=== PATIENT | male | born 1940 | race African-American/Black ===

== ENCOUNTER 2017-01-26 01:14 | Inpatient (IN) ==
[2017-01-26] MEDS ORDERED: ALBUTEROL/IPRATROPIUM 3 ML NEB RESP TX STA (01:24)
--- NOTE | 2017-01-26 01:41 | EKG Report ---
Stationary ECG Study [facility] ER Test Date: 01/26/2017 1:40:35 AM Pat Name: SOFIYA ROLDAN Department: Room: Gender: M Communications Field Technician: : 1940 Requested by: González Gann Order Number: [id number] Leonor MD: KAMERON SALCEDO Intervals Forbes Rate: 105 P: 52 CA: 127 QRS: 16 QRSD: 89 T: 55 QT: 357 QTc: 418 Interpretive Statements SINUS TACHYCARDIA ABNORMAL RHYTHM ECG Electronically Signed On 01-26-17 09:16:27 CDT by KAMERON SALCEDO [email or web address]
[2017-01-26 02:17] LABS: Basophils % 0.2 % (0.0-0.8); Eosinophils # 0.3 10*3/uL (0.0-0.87); Eosinophils % 2.7 % (0.00-10.9); Hematocrit 28.2 VOL% (42.0-52.0); Hemoglobin 8.9 GM/DL (14.0-18.0); Immature Granulocytes % 0.5 %; Immature Granulocytes Absolute 0.05 #; Lymphocytes # 2.1 10*3/uL (1.4-4.0); Lymphocytes % 22.1 % (21.2-54.2); Mean Corpuscular HGB Conc 31.6 GM/DL (32-36); Mean Corpuscular Hemoglobin 33 PG (27-34); Mean Corpuscular Volume 104.1 FL (87-102); Mean Platelet Volume 10.3 FL (9.6-12.0); Monocytes # 0.5 10*3/uL (0.11-0.8); Monocytes % 5.6 % (1.7-12.7); NRBC # 0.03 10*3/uL; Neutrophils # 6.4 10*3/uL (1.4-7.4); Neutrophils % 68.9 % (38.7-73.9); Platelet Count 246 T/CUMM (130-400); Red Blood Count 2.71 MC/CUMM (3.8-5.5); Red Cell Distribution Width 17.6 % (9.3-17.3); White Blood Count 9.3 T/CUMM (4-12)
[2017-01-26 02:19] LABS: Alanine Aminotransferase < 9 U/L (16-61); Albumin 2.4 G/DL (3.4-5.0); Alkaline Phosphatase 61 U/L (45-117); Aspartate Amino Transferase 25 U/L (0-37); Bilirubin,Total < 0.39 MG/DL (0.2-1.0); Blood Urea Nitrogen 34 MG/DL (7-18); Calcium 8.1 MG/DL (8.5-10.1); Glucose 118 MG/DL (74-106); Magnesium 1.7 MG/DL (1.8-2.4); Osmolality,Calculated 296.7 MOS/KG (273-304); Potassium 4.8 MMOL/L (3.5-5.1); Sodium 145 MMOL/L (136-145); Total Protein 7.5 G/DL (6.4-8.3)
[2017-01-26 02:30] LABS: Apearance,Urine CLEAR (Clear); Bacteria,Urine Occasional /HPF (Few); Bilirubin,Urine Negative (Negative); Blood, Urine Negative (Negative); Glucose,Urine (UA) Negative (Negative); Hyaline Casts,Urine 7 /LPF (0-3); Ketones,Urine Negative (Negative); Mucus,Urine Occasional /LPF (Occasional); Nitrite,Urine Negative (Negative); Protein,Urine Negative; RBC,Urine <1 /HPF (0-4); Squamous Epithelial Cell,Urine Occasional /HPF (0-10); Urine Color Yellow (Yellow); Urine Specific Gravity 1.012 (1.001-1.035); Urine Urobilinogen < 2.0 EU/DL (0.2-1.0); WBC,Urine 1 /HPF (0-6)
[2017-01-26 02:40] LABS: INR 1.1; PT Patient Result 11.3 SECS; Partial Thromboplastin Time 22.5 SECS (0-40)
[2017-01-26] MEDS ORDERED: cefTRIAXone 1,000 MG in SODIUM CHLORIDE 0.9% 100 ML IV STA (02:50)
[2017-01-26] MEDS ORDERED: cefTRIAXone 1,000 MG VIAL ONE (02:59)
--- NOTE | 2017-01-26 03:21 | Hospitalist History & Physical ---
Assessment and Plan (1) Pneumonia Status: Acute Current Visit: Yes (2) Fever Status: Acute Current Visit: Yes (3) Altered mental status Status: Acute Assessment and plan: Our plan for this patient: 1. admit patient to our service 2. IV antibiotics 3. Home meds as appropriate 4. breathing treatments appropriate Current Visit: Yes History of Present Illness Chief complaint: Fever shortness of breath altered mental status History of present illness: Mr. Villar is a 76 year old male with past medical history significant for frequent falls increased cholesterol hypertension and neuropathy was in his normal state of health until tonight. Patient is a resident at [facility]. Patient found to have decreased saturations and a fever of 101.3. Patient was sent up to our hospital for further evaluation. Pt confirmed that his cough causes pain in his abd/urine incontinence and that he is on home O2 constantly. Patient found to have a pneumonia. I was consulted to admit the patient to the ER. Home Medications Medication Instructions Recorded Confirmed Type Acetaminophen Tab [Tylenol Tab] 650 mg PO Q4H 06/08/15 01/26/17 History Albuterol Sulfate [Proair HFA] 90 mcg INH QID 06/08/15 01/26/17 History Allopurinol 100 mg PO DAILY 06/08/15 01/26/17 History Aspirin [Ecotrin] 81 mg PO DAILY 06/08/15 01/26/17 History Benzocaine/Menthol Lozenge 1 lozenge PO PRN PRN 06/08/15 01/26/17 History [Cepacol Lozenge] Ferrous Sulfate 325 mg PO DAILY 06/08/15 01/26/17 History Guaifenesin [Mucinex] 1,200 mg PO PRN PRN 06/08/15 01/26/17 History Loratadine [Claritin] 10 mg PO DAILY 06/08/15 01/26/17 History Promethazine Tab [Phenergan Tab] 25 mg PO Q4H PRN 06/08/15 01/26/17 History Sulfasalazine [Azulfidine] 500 mg PO BID 06/08/15 01/26/17 History HYDROcodone/ACETAMIN 10-325 [[place] 1 tablet PO Q6H PRN #20 tablet 07/09/1501/26 Rx 10-325] Valacyclovir HCl [Valtrex] 1,000 mg PO TID #21 tablet 07/09/15 01/26/17 Rx predniSONE TAB [PredniSONE] 20 mg PO BID #20 tablet 07/09/15 01/26/17 Rx Allergies Allergy/AdvReac Type Severity Reaction Status Date / Time naproxen Allergy RASH Verified 01/26/17 01:32 tramadol [From Ultram] Allergy RASH Verified 01/26/17 01:32 Medical,Surgical,& Family Hx - Medical History Cardio: History of: Hypertension HEENT: History of: HEENT Problems (wears a hearing box) Rheumatology: History of;: Gout, Rheumatoid Arthritis Musculoskeletal: History of: Musculoskeletal Problems (unsteady gait, frequent falls) Hematology: History of: Anemia - Surgical History Additional Surgical History: Unable to obtain - Family History Additional Family History: Unable to obtain - Social History Smoking Status: Never smoker Frequency of Alcohol Use: None Type of Drug Use: None ROS unobtainable: due to mental status Exam - Constitutional Vitals: Period Temp Pulse Resp BP Sys/Praksah Pulse Ox Last 24 Hr 101.8 F-101.8 F 101-109 16-23 162-163/62-63 85-100 - General General appearance: alert, in no apparent distress - Head Head exam: Present: atraumatic, normocephalic - Eye Eye exam: Present: normal appearance, PERRL, EOMI - ENT ENT exam: Present: normal oropharynx, mucous membranes moist, TM's normal bilaterally, normal external ear exam - Neck Neck exam: Present: full ROM, trachea midline. Absent: tenderness - Chest Chest inspection: Present: symmetric chest wall rise - Cardiovascular Cardiovascular exam: Present: tackcardia, normal rhythm, normal heart sounds. - Abdominal Exam Abdominal exam: Present: soft, normal bowel sounds. - Back Exam Back exam: Present: full ROM. Absent: tenderness - Neurological Exam Neurological exam: Present: alert, oriented X3, CN II-XII intact. - Psychiatric Psychiatric exam: Present: normal affect, normal mood, patient seems confused - Skin Skin exam: Present: warm, dry, intact, normal color Results - Labs CBC & BMP: 01/26/17 01:35 01/26/17 01:35 Labs: Per review of the chest x-ray there appears to be a right lower lobe pneumonia
[2017-01-26] MEDS ORDERED: ACETAMINOPHEN 325 MG TABLET PO PRN (03:25)
[2017-01-26] MEDS ORDERED: ALBUTEROL/IPRATROPIUM 3 ML NEB RESP TX PRN (03:25)
[2017-01-26] MEDS ORDERED: ONDANSETRON 4 MG/2 ML VIAL IV PRN (03:25)
--- NOTE | 2017-01-26 03:25 | Emergency Department Note ---
IDebby Gwan, am scribing for, and in the presence of, González Mackey MD 01:34. INarendra Kevin Lee, MD, personally performed the services described in this documentation, ascribed by Richard Guardado in my presence, and it is both accurate and complete . Arrival - Arrival Stated Complaint: fever Mode of Arrival: Ambulatory Limitations: No Limitations Source: Patient, EMS, Old Records Reviewed, RN Notes Reviewed - History of Present Illness HPI Narrative: Pt is a 76 y/o male, brought in by EMS transferred from [place], who presents to the ED for further evaluation of cough and fever with onset yesterday. EMS stated that [place] alerted EMS due to pt's presistant cough and c/o pain to left shoulder/ arm s/p fall yesterday. Pt confirmed that his cough causes pain in his abd/ urine incontinence and that he is on home O2 constantly. EMS confirmed that [place] staff stated pt's c/o left shoulder pain has been intermittent since onset. Patient denies any other pain/problems. Onset (ago): hour(s) Consistency: constant Severity: moderate Allergies/Adverse Reactions: Allergies Allergy/AdvReac Type Severity Reaction Status Date / Time naproxen Allergy RASH Verified 01/26/17 01:32 tramadol [From Ultram] Allergy RASH Verified 01/26/17 01:32 Home Medications: Home Medications Medication Instructions Recorded Confirmed Type Acetaminophen Tab [Tylenol Tab] 650 mg PO Q4H 06/08/15 01/26/17 History Albuterol Sulfate [Proair HFA] 90 mcg INH QID 06/08/15 01/26/17 History Allopurinol 100 mg PO DAILY 06/08/15 01/26/17 History Aspirin [Ecotrin] 81 mg PO DAILY 06/08/15 01/26/17 History Benzocaine/Menthol Lozenge 1 lozenge PO PRN PRN 06/08/15 01/26/17 History [Cepacol Lozenge] Ferrous Sulfate 325 mg PO DAILY 06/08/15 01/26/17 History Guaifenesin [Mucinex] 1,200 mg PO PRN PRN 06/08/15 01/26/17 History Loratadine [Claritin] 10 mg PO DAILY 06/08/15 01/26/17 History Promethazine Tab [Phenergan Tab] 25 mg PO Q4H PRN 06/08/15 01/26/17 History Sulfasalazine [Azulfidine] 500 mg PO BID 06/08/15 01/26/17 History HYDROcodone/ACETAMIN 10-325 [[place] 1 tablet PO Q6H PRN #20 tablet 07/09/1501/26 Rx 10-325] Valacyclovir HCl [Valtrex] 1,000 mg PO TID #21 tablet 07/09/15 01/26/17 Rx predniSONE TAB [PredniSONE] 20 mg PO BID #20 tablet 07/09/15 01/26/17 Rx Review of System - Review of System 12 point system: reviewed and no additional remarkable complaints except as stated - Review of System Constitutional: Present: as per HPI, fever Respiratory: Present: as per HPI, cough Musculoskeletal: Present: as per HPI, other (left shoulder pain) Medical,Surgical,& Family Hx - Medical History Cardio: History of: Hypertension HEENT: History of: HEENT Problems (wears a hearing box) Rheumatology: History of;: Gout, Rheumatoid Arthritis Hematology: History of: Anemia - Social History Smoking Status: Never smoker Exam Vital Signs: Vital Signs Temperature 101.8 F H 01/26/17 01:15 Pulse Rate 101 H 01/26/17 01:51 Respiratory Rate 23 01/26/17 01:51 Blood Pressure 163/62 01/26/17 01:15 O2 Sat by Pulse Oximetry 100 01/26/17 01:51 - General General appearance: alert, in no apparent distress - Head Head exam: Present: atraumatic, normocephalic - Eye Eye exam: Present: normal appearance, PERRL, EOMI - ENT ENT exam: Present: normal oropharynx, mucous membranes moist, TM's normal bilaterally, normal external ear exam - Neck Neck exam: Present: full ROM, trachea midline. Absent: tenderness - Chest Chest inspection: Present: symmetric chest wall rise. Absent: tenderness - Cardiovascular Cardiovascular exam: Present: regular rate, normal rhythm, normal heart sounds. Absent: murmur, rubs - Abdominal Exam Abdominal exam: Present: soft, normal bowel sounds. Absent: distention, tenderness - Back Exam Back exam: Present: full ROM. Absent: tenderness - Neurological Exam Neurological exam: Present: alert, oriented X3, CN II-XII intact. Absent: motor sensory deficit - Psychiatric Psychiatric exam: Present: normal affect, normal mood, other (patient appeared confused) - Skin Skin exam: Present: warm, dry, intact, normal color Course Course Narrative: will admit for IV abx Results - Labs CBC & BMP: 01/26/17 01:35 01/26/17 01:35 Lab Results: I have reviewed the patients labs Labs: Microbiology 01/26/17 01:35 Nasal Aspirate Influenza Types A,B Antigen (NORM) - Final Negative for Influenza A Ag Negative for Influenza B Ag Laboratory Tests 01/26/17 01/26/17 01/26/17 01:35 01:35 01:35 WBC 9.3 RBC 2.71 L Hgb 8.9 L Hct 28.2 L MCV 104.1 H MCHC 31.6 L RDW 17.6 H Plt Count 246 Sodium 145 Potassium 4.8 Chloride 104 Carbon Dioxide 31 BUN 34 H Creatinine 1.80 H Glucose 118 H Calcium 8.1 L Magnesium 1.7 L ALT < 9 L Albumin 2.4 L Globulin 5.1 H Albumin/Globulin Ratio 0.4 L Urine pH 5.0 Ur Specific [place] 1.012 Urine Urobilinogen < 2.0 H Urine RBC <1 Urine WBC 1 Ur Squamous Epith Cells Occasional Urine Bacteria Occasional Hyaline Casts 7 Urine Mucus Occasional Laboratory Tests 01/26/17 01/26/17 01/26/17 01:35 01:35 01:35 INR 1.1 PT Patient/Control Mix 11.3 Circ Anticoag PTT 22.5 B-Natriuretic Peptide 37 Urine pH 5.0 Ur Specific Butner 1.012 Urine Urobilinogen < 2.0 H Urine RBC <1 Urine WBC 1 Ur Squamous Epith Cells Occasional Urine Bacteria Occasional Hyaline Casts 7 Urine Mucus Occasional - Diagnostic Findings Procedure: Chest x-ray: image reviewed by me (RLL infiltrate), CT: image reviewed by me (no acute) Disposition Clinical Impression: Pneumonia, Hypoxia, Fever, Mild dehydration Case discussed with: patient Disposition: Still a Patient Condition: Stable
[2017-01-26] MEDS ORDERED: BENZOCAINE/MENTHOL LOZENGE 18/BOX PO PRN (03:31)
[2017-01-26] MEDS: AZITHROMYCIN INJ 500 MG in SODIUM CHLORIDE 0.9% 250 ML IV SCH (06:16)
--- NOTE | 2017-01-26 06:55 | CT Report ---
CT head/brain wo con Indication: Fall. Altered mental status. CT BRAIN WITHOUT CONTRAST DLP: 1026 mGy*cm. One or more of the following dose reduction techniques was used: Automated exposure control, adjustment of the mA and/or kV according the patient size, or use of iterative reconstruction techniques. Comparison: 07/06/2013. Date of admission: 01/26/2017. Technique: Axial noncontrast CT images of the brain were obtained. Findings: No acute hemorrhage, mass or mass effect. Generalized atrophy, patchy periventricular white matter hypodensity, and persistent cavum septum lucidum and vergae again noted. Hoffman-white junction is maintained. Vascular calcinosis of the nez perce of Cobb noted. No destructive bone lesions are seen. Visualized paranasal sinuses and mastoid air cells are clear. Impression: No acute intracranial pathology. Generalized atrophy and chronic small vessel ischemic change as described. PROCEDURE INTERPRETED AT [facility] DEPARTMENT OF RADIOLOGY Final Report Signed by: Pepe Marie M.D.
[2017-01-26] MEDS: ALBUTEROL 2.5 MG/3 ML NEB RESP TX SCH ×4 (07:02→19:12)
--- NOTE | 2017-01-26 07:05 | XRay Report ---
XR chest 1V portable Indication: Shortness of breath. Chest one view: Comparison 07/08/2015. Continued significant reticular nodular prominence of both lung terry noted diffusely. Lung lines are decreased from the prior examination with progressive atelectasis. Right hemidiaphragm is somewhat obscured by hazy opacity. Borderline cardiomegaly and calcified atheromatous disease appears stable. Impression: Worsening pulmonary hypoinflation with atelectasis. Cannot exclude early right basilar pneumonia. Severe underlying interstitial lung disease, stable since 2014. PROCEDURE INTERPRETED AT [facility] DEPARTMENT OF RADIOLOGY Final Report Signed by: Pepe Marie M.D.
[2017-01-26] MEDS: FERROUS SULFATE 325 MG TABLET PO SCH (08:34)
[2017-01-26] MEDS: ALLOPURINOL 100 MG TABLET PO SCH (08:34)
[2017-01-26] MEDS: ASPIRIN EC 81 MG TABLET PO SCH (08:34)
[2017-01-26] MEDS: valACYclovir 500 MG TABLET PO SCH ×3 (08:34→21:46)
[2017-01-26] MEDS: sulfaSALAzine 500 MG TABLET PO SCH ×2 (08:34→21:46)
[2017-01-26] MEDS: LORATADINE 10 MG TABLET PO SCH (08:34)
[2017-01-26] MEDS: ENOXAPARIN 40 MG/0.4 ML SYRINGE SUBCUT SCH (08:35)
[2017-01-26] MEDS: PANTOPRAZOLE 40 MG TABLET PO SCH (08:35)
[2017-01-26] MEDS ORDERED: predniSONE 20 MG TABLET PO SCH (09:00)
[2017-01-26] MEDS ORDERED: MAGNESIUM SULF RIDER 2 GM in PREMIX 1 EACH IV ONE (10:30)
[2017-01-26] MEDS ORDERED: BISACODYL 5 MG TABLET PO PRN (10:31)
--- NOTE | 2017-01-26 12:26 | Hospitalist Progress Note ---
Assessment and Plan (1) Interstitial lung disease Status: Acute Assessment and plan: Patient was diagnosed with interstitial lung disease in 2015 it is severe in nature. We will give him a low dose of steroids. Current Visit: Yes (2) Pneumonia Status: Acute Assessment and plan: Continue Rocephin and azithromycin, duo nebs, running fever at facility. White count is normal and neutrophils are normal. Monitor blood cultures Current Visit: Yes (3) Anemia Status: Acute Assessment and plan: Patient is anemic, will monitor, we will continue Protonix, guaiac his stool Current Visit: Yes (4) Acute renal failure Status: Acute Assessment and plan: One half normal saline at 125 ml/hr Current Visit: Yes (5) Dehydration Status: Acute Assessment and plan: cont hydration Current Visit: Yes (6) Constipation Status: Acute Assessment and plan: dulcolax 10 mg po times one Current Visit: Yes (7) Hyperglycemia Status: Acute Assessment and plan: hgb A1c. Current Visit: Yes Hospitalist: Subjective Interval history: Patient has had stroke, but can understand a little bit of what he says. He was asking marked for more water. His mag needs to be replaced. His belly feels distended sounds like he needs poop and he had a lot of coarse rhonchi. Thinking about having speech evaluate him. Exam - Constitutional Vitals: Period Temp Pulse Resp BP Sys/Prakash Pulse Ox Last 24 Hr 97.6 F-97.8 F 85-90 17-20 119-126/48-63 92-98 Exam: Heart Rate-[RRR] Lungs-[bilateral rhonchi] GI-[+bs distended but nontender] Ext-[no edema] Neuro [suspect right-sided weakness], [alert and oriented times 1 patient on able to neurologically cooperate.] psych [normal mood and affect] General [no acute distress] Results - Labs CBC & BMP: 01/26/17 01:35 01/26/17 01:35 Lab Results: I have reviewed the past 24 hour labs - Diagnostic Findings Procedure: Chest x-ray: report reviewed by me (Right lower lobe pneumonia severe interstitial lung disease)
[2017-01-26] MEDS ORDERED: AMMONIUM LACTATE 12% LOTION 240 ML BOTTLE TOP PRN (12:56)
[2017-01-26] MEDS: SODIUM CHLORIDE 0.45% 1,000 ML IV SCH (13:17)
[2017-01-26] MEDS: methylPREDNISolone SOD SUC 40 MG/1 ML VIAL IV SCH (15:23)
[2017-01-26] MEDS: GABAPENTIN 300 MG CAPSULE PO SCH ×2 (15:23→21:45)
[2017-01-26] MEDS: cefTRIAXone 1,000 MG in SODIUM CHLORIDE 0.9% 100 ML IV SCH (21:18)
[2017-01-27] MEDS: methylPREDNISolone SOD SUC 40 MG/1 ML VIAL IV SCH ×2 (00:30→08:47)
[2017-01-27] MEDS: SODIUM CHLORIDE 0.45% 1,000 ML IV SCH ×2 (03:20→16:36)
[2017-01-27 06:36] LABS: Basophils % 0.1 % (0.0-0.8); Hematocrit 31.4 VOL% (42.0-52.0); Hemoglobin 9.3 GM/DL (14.0-18.0); Immature Granulocytes % 0.8 %; Immature Granulocytes Absolute 0.08 #; Lymphocytes % 9.9 % (21.2-54.2); Mean Corpuscular HGB Conc 29.6 GM/DL (32-36); Mean Corpuscular Hemoglobin 32 PG (27-34); Mean Corpuscular Volume 107.9 FL (87-102); Mean Platelet Volume 9.7 FL (9.6-12.0); Monocytes # 0.1 10*3/uL (0.11-0.8); Monocytes % 0.9 % (1.7-12.7); NRBC # 0.02 10*3/uL; Neutrophils # 9.1 10*3/uL (1.4-7.4); Neutrophils % 88.3 % (38.7-73.9); Platelet Count 279 T/CUMM (130-400); Red Blood Count 2.91 MC/CUMM (3.8-5.5); Red Cell Distribution Width 17.2 % (9.3-17.3); White Blood Count 10.3 T/CUMM (4-12)
[2017-01-27 07:05] LABS: Calcium 8.3 MG/DL (8.5-10.1); Osmolality,Calculated 291.1 MOS/KG (273-304); Potassium 5.1 MMOL/L (3.5-5.1)
[2017-01-27] MEDS: MAGNESIUM HYDROXIDE SUSP 30 ML UDCUP PO PRN (08:47)
[2017-01-27] MEDS: ASPIRIN EC 81 MG TABLET PO SCH (08:48)
[2017-01-27] MEDS: ATORVASTATIN 40 MG TABLET PO SCH (08:48)
[2017-01-27] MEDS: PANTOPRAZOLE 40 MG TABLET PO SCH (08:48)
[2017-01-27] MEDS: valACYclovir 500 MG TABLET PO SCH ×3 (08:48→20:02)
[2017-01-27] MEDS: FERROUS SULFATE 325 MG TABLET PO SCH (08:48)
[2017-01-27] MEDS: sulfaSALAzine 500 MG TABLET PO SCH ×2 (08:48→20:02)
[2017-01-27] MEDS: GABAPENTIN 300 MG CAPSULE PO SCH ×3 (08:48→20:01)
[2017-01-27] MEDS: FOLIC ACID 1 MG TABLET PO SCH (08:48)
[2017-01-27] MEDS: ALLOPURINOL 100 MG TABLET PO SCH (08:49)
[2017-01-27] MEDS: ENOXAPARIN 40 MG/0.4 ML SYRINGE SUBCUT SCH (08:49)
[2017-01-27] MEDS: LORATADINE 10 MG TABLET PO SCH (08:49)
[2017-01-27] MEDS: AZITHROMYCIN INJ 500 MG in SODIUM CHLORIDE 0.9% 250 ML IV SCH (08:51)
[2017-01-27] MEDS: ALBUTEROL 2.5 MG/3 ML NEB RESP TX SCH ×4 (08:53→19:32)
--- NOTE | 2017-01-27 09:37 | Physician Query Form ---
CLICK EDIT DOCUMENT TO SELECT QUERY ANSWER --> OK --> SIGN Sonya Mustafa RN Clinical [employer] W) [phone] (f) [phone] [email or web address] PROVIDERS: Make your selection(s) from the choices in EACH section by typing an "x" and enter comments in the comment section. Please use your independent medical judgment in providing your response. This request does not imply that any particular answer is desired or expected. CLINICAL INDICATORS: (Providers should not edit this section) Based on documentation of "Acute interstitial lung disease" "On home oxygen continuously" "Acute pneumonia" Oxygen applied at 2 liters. If possible, please further clarify the type and acuity of respiratory diagnosis : ACUITY: ( ) Acute ( x) Chronic ( ) Acute on Chronic TYPE: ( x) Respiratory failure with hypoxia ( ) Respiratory failure with hypercapnia ( ) Respiratory Arrest ( ) Postprocedural/postoperative respiratory failure ( ) ARDS (Adult/Acute Respiratory Distress Syndrome) ( ) Other, please specify: ( ) Clinically unable to determine Recognized criteria for respiratory failure PH <7.35 or >7.45 PO2 <60 PCO2 >50 RR >24 O2 Sat <90% on RA or <95% on O2 Use of accessory muscles Unable to speak in full sentences Intubation is not required COMMENTS: Use of terms such as suspected, likely, or probable (associated with a specific diagnosis that is being evaluated, monitored, or treated as if it exists) are acceptable and can be restated in the discharge summary if not ruled out. MTDD
--- NOTE | 2017-01-27 14:05 | Hospitalist Progress Note ---
Assessment and Plan (1) Interstitial lung disease Status: Acute Assessment and plan: This condition is chronic and stable Current Visit: Yes (2) Pneumonia Status: Acute Assessment and plan: Continue Rocephin and azithromycin, duo nebs, blood cultures negative Current Visit: Yes (3) Anemia Status: Acute Assessment and plan: Hemoglobin stable continue protonix Current Visit: Yes (4) Acute renal failure Status: Acute Assessment and plan: Continue gentle hydration half-normal saline Current Visit: Yes (5) Dehydration Status: Acute Assessment and plan: cont hydration Current Visit: Yes (6) Constipation Status: Acute Assessment and plan: Resolved patient had multiple bowel movements Current Visit: Yes (7) Hyperglycemia Status: Acute Assessment and plan: hgb A1c pending Current Visit: Yes (8) Altered mental status Status: Acute Assessment and plan: MRI of brain today Current Visit: Yes Hospitalist: Subjective Interval history: Patient more talkative and more alert. Nursing reports him getting up and walking around and talking more his words are a little bit slurred. Talked to the family this morning and normally gas he is very alert and awake in talking to people they are not aware that he has ever had a stroke in the past. I am still concerned he may be having little TIAs affecting his mentation. We will do an MRI of brain today. Exam - Constitutional Vitals: Period Temp Pulse Resp BP Sys/Prakash Pulse Ox Last 24 Hr 96.1 F-98.9 F 77-89 16-22 137-170/62-80 91-98 Exam: Heart Rate-[RRR] Lungs-[clear to auscultation bilaterally but diminished] GI-[+bs soft but obese] Ext-[no edema] Neuro [more alert and awake and talkative today. Moving all extremities well today. psych [normal mood and affect] General [no acute distress] Results - Labs CBC & BMP: 01/27/17 06:01 01/27/17 06:01 Lab Results: I have reviewed the past 24 hour labs Labs: Blood cultures 2 negative
--- NOTE | 2017-01-27 16:07 | Magnetic Resonance Report ---
Referring physician: Nyla Ferreira Exam: MRI brain without contrast Date: January 27, 2017 Comparison: CT brain without contrast January 26, 2017, MRI brain April 08, 2008, MRA head April 09, 2008 Reason: Stroke, TIA The patient is an inpatient who was admitted on January 27, 2017. Technique: MRI of the brain was performed without the use of contrast. Obtained images include sagittal T1, axial diffusion-weighted, axial FLAIR, axial T2, coronal T2, axial gradient and axial T1 sequences. A 1.5 Gricelda magnet was used. Findings: Motion artifact is present and degrades the quality of the study. There is a 0.7 cm focus of diffusion restriction at the subcortical white matter of the right occipital lobe. No corresponding abnormal signal seen on the T2 or FLAIR sequences, but this may be related to its small size. This could represent artifact or a small acute or early subacute lacunar-type infarction. A lacunar infarction is favored. There is mild generalized cerebral atrophy/volume loss. Small scattered areas of T2/FLAIR hyperintensity are again seen within the cerebral white matter bilaterally. This is nonspecific but is most consistent with mild chronic microvascular ischemic change. Less likely considerations include a demyelinating process, vasculitis or viral process. No hydrocephalus or midline shift is present. 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 There is no evidence of recent intracranial hemorrhage or abnormal mass effect. No abnormal extra-axial fluid collection is identified. 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 Please see the previous MRA of the brain for further details. The patient is likely status post cataract surgery. The orbits, sella and brainstem are otherwise unremarkable. The paranasal sinuses and mastoid air cells are clear. Impression: 1. There is a 0.7 cm focus of diffusion restriction within the subcortical white matter of the right occipital lobe. No corresponding abnormal signal is seen on the T2 or FLAIR images, but this likely represents an acute or early subacute lacunar infarction. 2. There is nonvisualization of the intracranial right ICA flow void. 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 3. There is mild generalized cerebral atrophy/volume loss and probable chronic microvascular ischemic change. This is similar to before. Findings were discussed with Dr. Ferreira on January 27, 2017 at 4:00 PM. This is a critical test. PROCEDURE INTERPRETED AT [facility] DEPARTMENT OF RADIOLOGY Final Report Signed by: Dr. Enedina Ferris
[2017-01-27] MEDS: CARVEDILOL 6.25 MG TABLET PO SCH (16:32)
[2017-01-27] MEDS: cefTRIAXone 1,000 MG in SODIUM CHLORIDE 0.9% 100 ML IV SCH (20:19)
[2017-01-28] MEDS: ALBUTEROL 2.5 MG/3 ML NEB RESP TX SCH ×2 (07:01→11:46)
[2017-01-28] MEDS ORDERED: methylPREDNISolone SOD SUC 125 MG/2 ML VIAL IV ONE (07:35)
[2017-01-28] MEDS ORDERED: hydrALAZINE 20 MG/1 ML VIAL ONE (07:35)
[2017-01-28] MEDS ORDERED: MORPHINE 2 MG/1 ML SYRINGE IV ONE (07:35)
[2017-01-28] MEDS ORDERED: ASPIRIN CHEW 81 MG TABLET PO ONE (07:35)
[2017-01-28] MEDS ORDERED: methylPREDNISolone SOD SUC 125 MG/2 ML VIAL ONE (07:36)
[2017-01-28] MEDS ORDERED: ALBUTEROL 2.5 MG/3 ML NEB RESP TX PRN (07:57)
[2017-01-28] MEDS ORDERED: FUROSEMIDE 40 MG/4 ML VIAL IV ONE (08:00)
[2017-01-28] MEDS ORDERED: ETOMIDATE 20 MG/10 ML VIAL IV ONE (08:15)
[2017-01-28] MEDS ORDERED: SUCCINYLCHOLINE 200 MG/10 ML VIAL ONE (08:15)
[2017-01-28] MEDS ORDERED: LIDOCAINE 2% 5 ML VIAL ONE (08:15)
[2017-01-28] MEDS: PROPOFOL 1,000 MG/100 ML BOTTLE IV SCH ×4 (08:20→23:11)
--- NOTE | 2017-01-28 08:22 | XRay Report ---
XR chest 1V portable Indication: Shortness of breath. Chest one view: Comparison 2 days ago shows worsening pulmonary edema with continued hazy obscuration of the lung bases. Cannot exclude developing pneumonia, especially on the right. Borderline cardiomegaly is stable. Continued mild prominence of the hilar structures noted. Impression: Worsening CHF decompensation. Progressive bibasilar obscuration concerning for developing pneumonia, especially on the right. PROCEDURE INTERPRETED AT [facility] DEPARTMENT OF RADIOLOGY Final Report Signed by: Pepe Marie M.D.
[2017-01-28 08:23] LABS: Basophils % 0.1 % (0.0-0.8); Eosinophils # 0.1 10*3/uL (0.0-0.87); Eosinophils % 0.5 % (0.00-10.9); Hematocrit 36.9 VOL% (42.0-52.0); Lymphocytes # 2.7 10*3/uL (1.4-4.0); Lymphocytes % 14.1 % (21.2-54.2); Mean Corpuscular HGB Conc 29.8 GM/DL (32-36); Mean Corpuscular Hemoglobin 32 PG (27-34); Mean Corpuscular Volume 107.9 FL (87-102); Mean Platelet Volume 9.7 FL (9.6-12.0); Monocytes # 0.8 10*3/uL (0.11-0.8); Monocytes % 4.1 % (1.7-12.7); NRBC # 0.05 10*3/uL; Neutrophils # 15.5 10*3/uL (1.4-7.4); Neutrophils % 80.2 % (38.7-73.9); Platelet Count 345 T/CUMM (130-400); Red Blood Count 3.42 MC/CUMM (3.8-5.5); Red Cell Distribution Width 17.6 % (9.3-17.3); White Blood Count 19.3 T/CUMM (4-12)
--- NOTE | 2017-01-28 08:29 | Anesthesia ---
Anesthesia Procedures - Intubation Time out performed intubation: Yes Sedative: Etomidate Mg given sedative: 18 Paralytic: Succinylcholine Mg given paralytic: 140 Laryngoscope: Dominique (3) ET Tube Size: 8 ET Tube Uncuffed: No Tube Secured Depth (cm): 22 Tube Secured Location: lips Tube Placement Confirmation: visualized tube passing through cords, equal breath sounds bilaterally, no breath sounds over epigastrium, confirmation by capnometry, confirmation detector color change Patient tolerated procedure intubation: no complications Intubation Complications: none
[2017-01-28 08:32] LABS: Alanine Aminotransferase < 6 U/L (16-61); Albumin 2.7 G/DL (3.4-5.0); Alkaline Phosphatase 60 U/L (45-117); Aspartate Amino Transferase 20 U/L (0-37); Bilirubin,Total < 0.39 MG/DL (0.2-1.0); Blood Urea Nitrogen 36 MG/DL (7-18); Glucose 105 MG/DL (74-106); Osmolality,Calculated 288.3 MOS/KG (273-304); Potassium 5.3 MMOL/L (3.5-5.1); Sodium 141 MMOL/L (136-145); Total Protein 8.7 G/DL (6.4-8.3); Troponin I Only 0.033 NG/ML (0.00-0.045)
--- NOTE | 2017-01-28 08:38 | Pulmonology Consult Note ---
Assessment and Plan (1) Acute respiratory failure with hypoxia Status: Acute Assessment and plan: The patient has developed worsening respiratory distress with hypoxemia and has required intubation. He appears to have fairly stiff lungs at present and will probably need to adjust his ventilator. Current Visit: Yes (2) Rheumatoid arthritis Status: Acute Assessment and plan: Patient apparently has a history of rheumatoid arthritis and may have interstitial lung disease. Current Visit: Yes (3) Pneumonia Status: Acute Assessment and plan: He is acutely worsened overnight and may have pneumonia. Current Visit: Yes (4) Acute renal failure Status: Acute Assessment and plan: He came in with a creatinine of 1.8 but it has improved to 1.3 Current Visit: Yes (5) Interstitial lung disease Status: Acute Assessment and plan: His x-rays suggest he may have some interstitial lung disease. Current Visit: Yes History of Present Illness Chief complaint: Shortness of breath History of present illness: Mr. Villar is a 76 year old black male that apparently has a history of having hypertension with a peripheral neuropathy. He has had frequent falls. He is a resident at [facility]. He apparently came in because of fever and some shortness of breath. He has been coughing and congested. His chest x-ray showed bilateral infiltrates. This morning he apparently was acutely short of breath and has required intubation. He does have diffuse bilateral infiltrates. It is unclear whether he has had underlying lung disease. He has no history of smoking. He possibly does have rheumatoid arthritis. Home Medications Medication Instructions Recorded Confirmed Type Albuterol Sulfate [Proair HFA] 90 mcg INH QID 06/08/15 01/26/17 History Allopurinol 100 mg PO BID 06/08/15 01/26/17 History Aspirin [Ecotrin] 81 mg PO DAILY 06/08/15 01/26/17 History Benzocaine/Menthol Lozenge 1 lozenge PO PRN PRN 06/08/15 01/26/17 History [Cepacol Lozenge] Guaifenesin [Mucinex] 200 mg PO PRN PRN 06/08/15 01/26/17 History Loratadine [Claritin] 10 mg PO DAILY 06/08/15 01/26/17 History Promethazine Tab [Phenergan Tab] 25 mg PO Q4H PRN 06/08/15 01/26/17 History Sulfasalazine [Azulfidine] 500 mg PO BID 06/08/15 01/26/17 History Albuterol Sulfate [Proair HFA] 2 puffs QID 01/26/17 01/26/17 History Ammonium Lactate 12% Lotion 1 applic TOP Q6HR PRN 01/26/17 01/26/17 History [Lac-Hydrin 12% Lotion] Atorvastatin Calcium 40 mg PO DAILY 01/26/17 01/26/17 History Calcium (Carbonate) [Oscal 500] 500 mg PO TID 01/26/17 01/26/17 History Cilostazol 50 mg PO BID 01/26/17 01/26/17 History Cyanocobalamin (Vitamin B-12) 1,000 mcg PO DAILY 01/26/17 01/26/17 History [Vitamin B-12] Dextromethorphan HBr/B-Asif 1 tablet PO Q4HR PRN 01/26/17 01/26/17 History [Cepacol Sorethroat-Cough Gerri] Folic Acid Tab 2 mg PO DAILY 01/26/17 01/26/17 History Gabapentin 300 mg PO TID 01/26/17 01/26/17 History HYDROcodone/ACETAMIN 10-325 [Willcox 1 tablet PO Q6H PRN 01/26/17 01/26/17 History 10-325] Skin Healing Oint (Aquaphor) 1 applic TOP DAILY 01/26/17 01/26/17 History [Aquaphor] guaiFENesin/DM LIQUID [Robitussin 10 ml PO Q4HR PRN 01/26/17 01/26/17 History Dm] hydroCHLOROthiazide 12.5 mg PO DAILY 01/26/17 01/26/17 History [Hydrochlorothiazide] Allergies Allergy/AdvReac Type Severity Reaction Status Date / Time naproxen Allergy RASH Verified 01/26/17 01:32 tramadol [From Ultram] Allergy RASH Verified 01/26/17 01:32 ROS unobtainable: due to endotracheal tube (He is unable to give a history now.) Exam (Pulmonay) H&P - Constitutional Vitals: Period Temp Pulse Resp BP Sys/Prakash Pulse Ox Last 24 Hr 96.1 F-98.2 F 76-118 17-38 125-205/49-117 74-99 General appearance: mild distress, over weight, other (He is a little agitated after being intubated) - Head Head exam: Present: normal inspection, normocephalic - Eye Eye exam: Present: EOMI. Absent: scleral icterus Pupils: Present: ALFREDA - ENT ENT exam: Present: other (ET tube is in good position) - Neck Neck exam: Absent: lymphadenopathy, thyromegaly - Respiratory Respiratory exam: Present: rales, other (He has coarse breath sounds with bilateral rales) - Cardiovascular Cardiovascular exam: Present: regular rate and rhythm. Absent: gallop, systolic murmur - GI/Abdominal GI/Abdominal exam: Present: distended, hypoactive bowel sounds, soft. Absent: organomegaly, tenderness - Extremities Exam Extremities exam: Absent: calf tenderness, edema - Neurological Exam Neurological exam: Present: altered (He is required sedation at present) - Psychiatric Psychiatric exam: Present: anxious - Skin Skin exam: Present: warm, dry Medical,Surgical,& Family Hx - Medical History Cardio: History of: Hypertension HEENT: History of: HEENT Problems (wears a hearing box) Rheumatology: History of;: Gout, Rheumatoid Arthritis Musculoskeletal: History of: Musculoskeletal Problems (unsteady gait, frequent falls) Hematology: History of: Anemia - Social History Smoking Status: Never smoker Frequency of Alcohol Use: None Type of Drug Use: None Results - Labs CBC & BMP: 01/28/17 07:51 01/28/17 07:51 - Diagnostic Findings Procedure: Chest x-ray: image reviewed by me, report reviewed by me (Chest x- ray does show diffuse infiltrates)
[2017-01-28] MEDS ORDERED: methylPREDNISolone SOD SUC 40 MG/1 ML VIAL IV SCH ×2 (09:00→13:00)
[2017-01-28] MEDS ORDERED: AZITHROMYCIN 250 MG TABLET PO SCH (09:00)
[2017-01-28 09:10] LABS: Pt O2 Delivery Device Ventilator
[2017-01-28 09:11] LABS: ABG Base Excess 1.9 MMOL/L (-2.5-2.5); ABG HCO3 31.9 MMOL/L (20-26); ABG PO2 215.3 MM HG (80-95); ABG TCO2 34.5 MMOL/L (23-27)
[2017-01-28 09:16] LABS: ABG PCO2 85.5 MM HG (35-48)
[2017-01-28] MEDS: SODIUM CHLORIDE 0.45% 1,000 ML IV SCH (09:44)
--- NOTE | 2017-01-28 09:59 | XRay Report ---
XR chest 1V portable Indication: Intubated. Chest one view: Endotracheal tube is now present terminating 3 cm cephalad of william. An NG tube extends into the left upper quadrant, well into the stomach. Changes of CHF are relatively stable when compared to 1.5 hours earlier. No new infiltrates are shown. Impression: Intubation. NG tube as described. Otherwise no change. PROCEDURE INTERPRETED AT [facility] DEPARTMENT OF RADIOLOGY Final Report Signed by: Pepe Marie M.D.
[2017-01-28] MEDS: sulfaSALAzine 500 MG TABLET PO SCH ×2 (11:02→20:58)
[2017-01-28] MEDS: valACYclovir 500 MG TABLET PO SCH ×3 (11:02→20:58)
[2017-01-28] MEDS: ASPIRIN CHEW 81 MG TABLET PO SCH (11:02)
[2017-01-28] MEDS: FOLIC ACID 1 MG TABLET PO SCH (11:03)
[2017-01-28] MEDS: PANTOPRAZOLE 40 MG VIAL IV SCH (11:03)
[2017-01-28] MEDS: ALLOPURINOL 100 MG TABLET PO SCH (11:03)
[2017-01-28] MEDS: LORATADINE 10 MG TABLET PO SCH (11:03)
[2017-01-28] MEDS: GABAPENTIN 300 MG CAPSULE PO SCH ×3 (11:03→20:59)
[2017-01-28] MEDS: CARVEDILOL 6.25 MG TABLET PO SCH ×2 (11:04→16:11)
[2017-01-28] MEDS: ENOXAPARIN 40 MG/0.4 ML SYRINGE SUBCUT SCH (11:04)
[2017-01-28] MEDS: FERROUS SULFATE 325 MG TABLET PO SCH (11:04)
[2017-01-28] MEDS: ATORVASTATIN 40 MG TABLET PO SCH (11:04)
[2017-01-28] MEDS: CLINDAMYCIN INJ 600 MG in PREMIX 1 EACH IV SCH ×2 (11:04→16:12)
[2017-01-28 11:05] LABS: Apearance,Urine CLEAR (Clear); Bacteria,Urine Occasional /HPF (Few); Bilirubin,Urine Negative (Negative); Blood, Urine Negative (Negative); Glucose,Urine (UA) Negative (Negative); Hyaline Casts,Urine 3 /LPF (0-3); Ketones,Urine Negative (Negative); Nitrite,Urine Negative (Negative); Protein,Urine Negative; RBC,Urine <1 /HPF (0-4); Squamous Epithelial Cell,Urine Occasional /HPF (0-10); Urine Color Straw (Yellow); Urine Specific Gravity 1.011 (1.001-1.035); Urine Urobilinogen < 2.0 EU/DL (0.2-1.0); WBC,Urine <1 /HPF (0-6)
[2017-01-28] MEDS: ASPIRIN EC 81 MG TABLET PO SCH (11:13)
[2017-01-28] MEDS: ALBUTEROL/IPRATROPIUM 3 ML NEB RESP TX SCH ×2 (12:01→19:07)
[2017-01-28 12:06] LABS: ABG Base Excess 3.3 MMOL/L (-2.5-2.5); ABG HCO3 26.4 MMOL/L (20-26); ABG Oxygen Saturation 99.2 % (95-100); ABG PCO2 34.3 MM HG (35-48); ABG PH 7.504 (7.35-7.45); ABG PO2 247.2 MM HG (80-95); ABG TCO2 27.4 MMOL/L (23-27)
--- NOTE | 2017-01-28 13:47 | Hospitalist Progress Note ---
Assessment and Plan (1) Acute respiratory failure Status: Acute Assessment and plan: Patient was intubated, fluids were hep-locked, Dr. Caleb Arriaga consulted, Lasix IV given, should be able to get off ventilator soon. Will add clindamycin for aspiration pneumonia as his white count went from 10-19. Current Visit: Yes (2) Pneumonia Status: Acute Assessment and plan: Will add clindamycin to cover aspiration continue Rocephin and azithromycin, duo nebs, white count significantly elevated today. Current Visit: Yes (3) Interstitial lung disease Status: Acute Assessment and plan: This condition is chronic Current Visit: Yes (4) Anemia Status: Acute Assessment and plan: Hemoglobin stable continue protonix Current Visit: Yes (5) Acute renal failure Status: Acute Assessment and plan: Resolving. Patient has chronic stage III renal failure and cannot tolerate any more fluids. 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 We moved him to the ICU and intubated him. Patient does have a lung disease and his chest x-ray showed cephalization of the vessels consistent with congestive heart failure. His BNP however was barely over 200. Dr. Arriaga was consulted and will manage the vent for me. Exam - Constitutional Vitals: Period Temp Pulse Resp BP Sys/Prakash Pulse Ox Last 24 Hr 96.7 F-98.2 F 70-120 12-38 87-215/38-141 74-100 Exam: Heart Rate-[tachy] Lungs-[diffuse bilateral expiratory wheezing] GI-[+bs soft but obese] Ext-[no edema] Neuro [more alert and awake and talkative today. Moving all extremities well today. psych [normal mood and affect] General [severe acute distress] Results - Labs CBC & BMP: 01/28/17 07:51 01/28/17 07:51 Lab Results: I have reviewed the past 24 hour labs - Diagnostic Findings Procedure: Chest x-ray: report reviewed by me (Pulmonary edema), MRI: report reviewed by me (0.7 cm in the right occipital lobe consistent with an infarct acute or early subacute with flow void in the right ICA consistent with occlusion of the right ICA. There is generalized atrophy and volume loss.)
[2017-01-28] MEDS: methylPREDNISolone SOD SUC 125 MG/2 ML VIAL IV SCH ×2 (16:11→20:57)
[2017-01-28] MEDS: FUROSEMIDE 40 MG/4 ML VIAL IV SCH (16:11)
[2017-01-28] MEDS: cefTRIAXone 1,000 MG in SODIUM CHLORIDE 0.9% 100 ML IV SCH (20:58)
[2017-01-29] MEDS: ALBUTEROL/IPRATROPIUM 3 ML NEB RESP TX SCH ×4 (00:05→19:51)
[2017-01-29] MEDS: CLINDAMYCIN INJ 600 MG in PREMIX 1 EACH IV SCH ×2 (00:18→10:37)
[2017-01-29] MEDS: methylPREDNISolone SOD SUC 125 MG/2 ML VIAL IV SCH ×4 (03:25→20:38)
[2017-01-29] MEDS: PROPOFOL 1,000 MG/100 ML BOTTLE IV SCH ×4 (05:26→22:29)
[2017-01-29 06:10] LABS: Hematocrit 32.8 VOL% (42.0-52.0); Hemoglobin 9.8 GM/DL (14.0-18.0); Immature Granulocytes % 0.7 %; Immature Granulocytes Absolute 0.08 #; Lymphocytes # 1.5 10*3/uL (1.4-4.0); Lymphocytes % 12.3 % (21.2-54.2); Mean Corpuscular HGB Conc 29.9 GM/DL (32-36); Mean Corpuscular Hemoglobin 32 PG (27-34); Mean Corpuscular Volume 106.8 FL (87-102); Monocytes # 0.2 10*3/uL (0.11-0.8); NRBC # 0.02 10*3/uL; Neutrophils # 10.3 10*3/uL (1.4-7.4); Platelet Count 290 T/CUMM (130-400); Red Blood Count 3.07 MC/CUMM (3.8-5.5); Red Cell Distribution Width 17.6 % (9.3-17.3); White Blood Count 12.2 T/CUMM (4-12)
[2017-01-29 06:31] LABS: Osmolality,Calculated 291.7 MOS/KG (273-304); Potassium 4.9 MMOL/L (3.5-5.1)
[2017-01-29] MEDS: CARVEDILOL 6.25 MG TABLET PO SCH (07:45)
[2017-01-29] MEDS: FUROSEMIDE 40 MG/4 ML VIAL IV SCH (07:46)
--- NOTE | 2017-01-29 08:05 | Pulmonology Progress Note ---
Pulmonary - PN: Subj Interval history: Patient is a 76-year-old black man that developed acute respiratory distress and diffuse infiltrates and had to be intubated yesterday. He did have significant hypoxemia with extensive infiltrates. He has diuresed fairly well and looks comfortable today. He is much more alert his oxygenation seems to be stable. Overall he seems to be doing fairly well. Exam (Progress Note) - Constitutional Vitals: Period Temp Pulse Resp BP Sys/Prakash Pulse Ox Last 24 Hr 96.5 F-97.8 F 49-120 12-92 87-215/38-141 83-100 Exam: General appearance: no distress, over weight, other (He is awake and comfortable on the ventilator now.) - Head Head exam: Present: normal inspection, normocephalic - Eye Eye exam: Present: EOMI. Absent: scleral icterus Pupils: Present: ALFREDA - ENT ENT exam: Present: other (ET tube is in good position) - Neck Neck exam: Absent: lymphadenopathy, thyromegaly - Respiratory Respiratory exam: Present: He has good breath sounds bilaterally and his lungs sound a little better with less rales. - Cardiovascular Cardiovascular exam: Present: regular rate and rhythm. Absent: gallop, systolic murmur - GI/Abdominal GI/Abdominal exam: Present: distended, hypoactive bowel sounds, soft. Absent: organomegaly, tenderness - Extremities Exam Extremities exam: Absent: calf tenderness, edema - Neurological Exam Neurological exam: Present: altered (He is awake and responding now.) - Psychiatric Psychiatric exam: Present: Comfortable - Skin Skin exam: Present: warm, dry Results - Labs CBC & BMP: 01/29/17 05:01 01/29/17 05:01 Assessment and Plan (1) Acute respiratory failure with hypoxia Status: Acute Assessment and plan: The patient looks much more comfortable and oxygenation is better. We will recheck a chest x-ray. Current Visit: Yes (2) Rheumatoid arthritis Status: Acute Assessment and plan: Patient apparently has a history of rheumatoid arthritis and may have interstitial lung disease. Current Visit: Yes (3) Pneumonia Status: Acute Assessment and plan: He is acutely worsened overnight and may have pneumonia. The patient is getting IV antibiotics. His cultures are negative so far. Current Visit: Yes (4) Acute renal failure Status: Acute Assessment and plan: He came in with a creatinine of 1.8 and is 1.6 today. Current Visit: Yes (5) Interstitial lung disease Status: Acute Assessment and plan: His x-rays suggest he may have some interstitial lung disease. Current Visit: Yes
[2017-01-29 08:09] LABS: ABG Base Excess 3.8 MMOL/L (-2.5-2.5); ABG HCO3 28.6 MMOL/L (20-26); ABG Oxygen Saturation 96.7 % (95-100); ABG PCO2 43.8 MM HG (35-48); ABG PH 7.432 (7.35-7.45); ABG PO2 89.5 MM HG (80-95); ABG TCO2 29.9 MMOL/L (23-27); Allen Test Positive; Pt O2 Delivery Device Ventilator
--- NOTE | 2017-01-29 09:29 | XRay Report ---
Exam: XR chest 1V portable Date: 01/29/2017 8:08 AM Indication: Respiratory failure Comparison: 01/28/2017 Technical: AP portable Findings: Endotracheal tube at the level of the aortic knob. Nasogastric tube is in the stomach. Low volume right effusion and atelectatic change with mild shunt vascularity. No pneumothorax. External cardiac leads are present. Impression: 1. Stable appearance of life support tubes 2. Persistent the effusions in both bases right greater than left with shunt vascularity PROCEDURE INTERPRETED AT [facility] DEPARTMENT OF RADIOLOGY Final Report Signed by: Dr. Roman Hawkins
[2017-01-29] MEDS: sulfaSALAzine 500 MG TABLET PO SCH ×2 (10:37→20:38)
[2017-01-29] MEDS: ENOXAPARIN 40 MG/0.4 ML SYRINGE SUBCUT SCH (10:37)
[2017-01-29] MEDS: PANTOPRAZOLE 40 MG VIAL IV SCH (10:37)
[2017-01-29] MEDS: GABAPENTIN 300 MG CAPSULE PO SCH ×3 (10:38→20:39)
[2017-01-29] MEDS: valACYclovir 500 MG TABLET PO SCH ×3 (10:38→20:39)
[2017-01-29] MEDS: ASPIRIN CHEW 81 MG TABLET PO SCH (10:38)
[2017-01-29] MEDS: FOLIC ACID 1 MG TABLET PO SCH (10:39)
[2017-01-29] MEDS: ALLOPURINOL 100 MG TABLET PO SCH (10:39)
[2017-01-29] MEDS: LORATADINE 10 MG TABLET PO SCH (10:40)
[2017-01-29] MEDS: ATORVASTATIN 40 MG TABLET PO SCH (10:47)
[2017-01-29] MEDS: FERROUS SULFATE 325 MG TABLET PO SCH (10:47)
--- NOTE | 2017-01-29 11:51 | EKG Report ---
Stationary ECG Study [facility] Test Date: 01/28/2017 7:39:03 AM Pat Name: SOFIYA ROLDAN Department: Room: 119 Gender: M Boarding Mother: : 1940 Requested by: Moustapha Wright Order Number: [id number] Reading MD: KING HURT Intervals [place] Rate: 119 P: 42 MO: 108 QRS: 45 QRSD: 94 T: 61 QT: 305 QTc: 376 Interpretive Statements SINUS TACHYCARDIA Electronically Signed On 01-30-17 17:52:37 CDT by KING HURT [email or web address]
--- NOTE | 2017-01-29 13:59 | Hospitalist Progress Note ---
Assessment and Plan (1) Acute respiratory failure Status: Acute Assessment and plan: Unable to do weaning trials today, pneumonia looks worse, change from clindamycin and rocephin to zosyn. Dr. Bart Jaime managing vent. Current Visit: Yes (2) Pneumonia Status: Acute Assessment and plan: cont duonebs and zosyn and vent support Current Visit: Yes (3) Interstitial lung disease Status: Acute Assessment and plan: probably due to RA. 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 Patient still sounds junky today. He is still not ready for extubation. Dr. Arriaga and I have discussed his case. Exam - Constitutional Vitals: Period Temp Pulse Resp BP Sys/Prakash Pulse Ox Last 24 Hr 96.1 F-97.8 F 49-71 12-92 77-146/36-72 99-100 Exam: Heart Rate-[RRR] Lungs-[bilateral rhonchi] GI-[+bs soft but obese] Ext-[no edema] Neuro agitated and moving his extremities psych [agitated mood and affect] General [mild acute distress] Results - Labs CBC & BMP: 01/29/17 05:01 01/29/17 05:01 Lab Results: I have reviewed the past 24 hour labs - Diagnostic Findings Procedure: Chest x-ray: report reviewed by me (bilateral infiltrate with effusions )
[2017-01-29] MEDS ORDERED: SODIUM CHLORIDE 0.9% 500 ML IV ONE (14:04)
[2017-01-29] MEDS ORDERED: PHENYLEPHRINE DRIP 40 MG/250 ML PREMIX IV SCH (14:30)
[2017-01-29] MEDS: PIPERACILLIN/TAZOBACTAM 3,375 MG in SODIUM CHLORIDE 0.9% 100 ML IV SCH ×2 (15:00→22:28)
[2017-01-30] MEDS: ALBUTEROL/IPRATROPIUM 3 ML NEB RESP TX SCH ×4 (01:07→19:21)
[2017-01-30] MEDS: PROPOFOL 1,000 MG/100 ML BOTTLE IV SCH ×5 (02:30→19:00)
[2017-01-30] MEDS: methylPREDNISolone SOD SUC 125 MG/2 ML VIAL IV SCH ×4 (02:31→20:26)
[2017-01-30 03:11] LABS: ABG HCO3 24.4 MMOL/L (20-26); ABG Oxygen Saturation 99.1 % (95-100); ABG PCO2 40.6 MM HG (35-48); ABG PH 7.394 (7.35-7.45); ABG TCO2 22.7 MMOL/L (23-27); Allen Test Positive; Pt O2 Delivery Device Ventilator
[2017-01-30 05:34] LABS: Basophils % 0.1 % (0.0-0.8); Hematocrit 28.1 VOL% (42.0-52.0); Hemoglobin 8.7 GM/DL (14.0-18.0); Immature Granulocytes Absolute 0.14 #; Lymphocytes # 1.4 10*3/uL (1.4-4.0); Lymphocytes % 10.3 % (21.2-54.2); Mean Corpuscular Hemoglobin 32 PG (27-34); Mean Corpuscular Volume 103.3 FL (87-102); Mean Platelet Volume 10.1 FL (9.6-12.0); Monocytes # 0.6 10*3/uL (0.11-0.8); Monocytes % 4.4 % (1.7-12.7); NRBC # 0.08 10*3/uL; Neutrophils # 11.7 10*3/uL (1.4-7.4); Neutrophils % 84.2 % (38.7-73.9); Platelet Count 311 T/CUMM (130-400); Red Blood Count 2.72 MC/CUMM (3.8-5.5); Red Cell Distribution Width 17.5 % (9.3-17.3); White Blood Count 13.9 T/CUMM (4-12)
[2017-01-30 06:16] LABS: Calcium 7.5 MG/DL (8.5-10.1); Osmolality,Calculated 303.4 MOS/KG (273-304)
[2017-01-30] MEDS: PIPERACILLIN/TAZOBACTAM 3,375 MG in SODIUM CHLORIDE 0.9% 100 ML IV SCH ×3 (07:10→22:35)
--- NOTE | 2017-01-30 07:42 | Pulmonology Progress Note ---
Pulmonary - PN: Subj Interval history: Patient is a 76-year-old black man that developed acute respiratory distress and diffuse infiltrates and had to be intubated yesterday. He did have significant hypoxemia with extensive infiltrates. He has diuresed fairly well and looks comfortable today. His oxygenation has improved and his vital signs are stable. His chest x-ray still shows mild bibasilar infiltrates but is much better. Will lower his FiO2 and continue CPAP trials. He should be able to come off the ventilator in the next day or 2. Exam (Progress Note) - Constitutional Vitals: Period Temp Pulse Resp BP Sys/Prakash Pulse Ox Last 24 Hr 96.1 F-99.7 F 45-72 11-22 77-167/36-96 93-100 Exam: General appearance: no distress, over weight, other (He is awake and comfortable on the ventilator now.) - Head Head exam: Present: normal inspection, normocephalic - Eye Eye exam: Present: EOMI. Absent: scleral icterus Pupils: Present: ALFREDA - ENT ENT exam: Present: other (ET tube is in good position) - Neck Neck exam: Absent: lymphadenopathy, thyromegaly - Respiratory Respiratory exam: Present: He has good breath sounds bilaterally and his lungs sound much clearer with only minimal crackles. - Cardiovascular Cardiovascular exam: Present: regular rate and rhythm. Absent: gallop, systolic murmur - GI/Abdominal GI/Abdominal exam: Present: distended, hypoactive bowel sounds, soft. Absent: organomegaly, tenderness - Extremities Exam Extremities exam: Absent: calf tenderness, edema - Neurological Exam Neurological exam: Present: altered (He is awake and responding now.) - Psychiatric Psychiatric exam: Present: Comfortable - Skin Skin exam: Present: warm, dry Results - Labs CBC & BMP: 01/30/17 05:01 01/30/17 05:01 Labs: PO2 is 164 with a PCO2 of 40 and pH of 7.39 - Diagnostic Findings Procedure: Chest x-ray: image reviewed by me, report reviewed by me (Chest x- ray shows mild bibasilar infiltrates) Assessment and Plan (1) Acute respiratory failure with hypoxia Status: Acute Assessment and plan: The patient continues to improve and his oxygenation is improving. He still has mild bibasilar infiltrates. We will try CPAP trials today and possibly extubate tomorrow Current Visit: Yes (2) Rheumatoid arthritis Status: Acute Assessment and plan: Patient apparently has a history of rheumatoid arthritis and may have interstitial lung disease. Current Visit: Yes (3) Pneumonia Status: Acute Assessment and plan: He still has bibasilar infiltrates and is being treated for pneumonia. His cultures are negative so far. Current Visit: Yes (4) Acute renal failure Status: Acute Assessment and plan: His creatinine is 1.7 today. Current Visit: Yes (5) Interstitial lung disease Status: Acute Assessment and plan: His x-rays suggest he may have some interstitial lung disease. His chest x-ray does look much better however Current Visit: Yes
[2017-01-30] MEDS: PANTOPRAZOLE 40 MG VIAL IV SCH (08:42)
[2017-01-30] MEDS: MAGNESIUM HYDROXIDE SUSP 30 ML UDCUP PO PRN (08:42)
[2017-01-30] MEDS: ENOXAPARIN 40 MG/0.4 ML SYRINGE SUBCUT SCH (08:42)
[2017-01-30] MEDS: FOLIC ACID 1 MG TABLET PO SCH (08:43)
[2017-01-30] MEDS: ALLOPURINOL 100 MG TABLET PO SCH (08:43)
[2017-01-30] MEDS: ATORVASTATIN 40 MG TABLET PO SCH (08:43)
[2017-01-30] MEDS: GABAPENTIN 300 MG CAPSULE PO SCH ×3 (08:43→20:26)
[2017-01-30] MEDS: FERROUS SULFATE 325 MG TABLET PO SCH (08:43)
[2017-01-30] MEDS: LORATADINE 10 MG TABLET PO SCH (08:44)
[2017-01-30] MEDS: ASPIRIN CHEW 81 MG TABLET PO SCH (08:44)
[2017-01-30] MEDS: valACYclovir 500 MG TABLET PO SCH ×3 (08:47→20:26)
[2017-01-30] MEDS: sulfaSALAzine 500 MG TABLET PO SCH ×2 (08:47→20:26)
--- NOTE | 2017-01-30 08:55 | XRay Report ---
Exam: XR chest 1V portable Date: 01/30/2017 4:00 AM Indication: Follow-up ventilator respiratory failure Comparison: 01/29/2017 Technical: AP portable Findings: Endotracheal tube nasogastric tube and external cardiac leads are present. Patchy infiltrates are present in the base regions with low volume effusions and atelectasis bilaterally. No pneumothorax. ASVD is present. Mediastinum is intact Impression: 1. Stable appearance of life support tubing 2. Bibasilar effusions atelectatic change right greater than left PROCEDURE INTERPRETED AT [facility] DEPARTMENT OF RADIOLOGY Final Report Signed by: Dr. Roman Hawkins
--- NOTE | 2017-01-30 12:18 | Hospitalist Progress Note ---
Assessment and Plan (1) Acute respiratory failure Status: Acute Assessment and plan: cont zosyn, continue attempts to wean off the vent. Will make referral to [facility] on Tuesday. Spoke with his brother and gave him an update yesterday, ABG better today Current Visit: Yes (2) Pneumonia Status: Acute Assessment and plan: cont duonebs and zosyn Current Visit: Yes (3) Interstitial lung disease Status: Acute Assessment and plan: probably due to RA. 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 May need to entertain [facility]. Patient does have known interstitial lung disease. Patient so far is been on CPAP for 4 hours without problems. No bowel movement several days will give laxatives today. High tube feed residuals. Exam - Constitutional Vitals: Period Temp Pulse Resp BP Sys/Prakash Pulse Ox Last 24 Hr 96.1 F-99.7 F 45-72 10-22 77-167/36-96 93-100 Exam: Heart Rate-[RRR] Lungs-[few rhonchi improving since yesterday ] GI-[+bs distended ] Ext-[RUE edema] Neuro agitated without sedation and moving his extremities psych [agitated mood and affect] General [no acute distress] Results - Labs CBC & BMP: 01/30/17 05:01 01/30/17 05:01 Lab Results: I have reviewed the past 24 hour labs - Diagnostic Findings Procedure: Chest x-ray: report reviewed by me (right atelectasis )
[2017-01-30] MEDS ORDERED: GLUCAGON 1 MG VIAL IM PRN (13:03)
[2017-01-30] MEDS ORDERED: DEXTROSE 50% 25 GM/50 ML VIAL IV PRN (13:03)
--- NOTE | 2017-01-30 14:09 | Ultrasound Report ---
Exam: US venous doppler UE RT Date: 01/30/2017 12:16 PM Indication: Right arm swelling Comparison: None Findings: Grayscale color flow Doppler duplex imaging was performed with spectral waveform analysis the with real-time ultrasound imaging with image stored and captured. Right internal jugular, subclavian, axillary, brachial, cephalic, basilic veins are patent with normal augmentation and compression. Normal color flow present. Impression: 1. No obvious DVT present. PROCEDURE INTERPRETED AT [facility] DEPARTMENT OF RADIOLOGY Final Report Signed by: Dr. Roman Hawkins
[2017-01-30] MEDS: INSULIN LISPRO 100 UNIT/ML SUBCUT SCH (18:59)
[2017-01-30] MEDS ORDERED: ALBUTEROL 2.5 MG/3 ML NEB RESP TX PRN (21:23)
[2017-01-31] MEDS: ALBUTEROL/IPRATROPIUM 3 ML NEB RESP TX SCH ×4 (01:38→19:01)
[2017-01-31] MEDS: INSULIN LISPRO 100 UNIT/ML SUBCUT SCH ×4 (02:20→18:52)
[2017-01-31] MEDS: methylPREDNISolone SOD SUC 125 MG/2 ML VIAL IV SCH ×2 (02:21→19:31)
[2017-01-31 02:57] LABS: ABG Base Excess 3.3 MMOL/L (-2.5-2.5); ABG HCO3 27.3 MMOL/L (20-26); ABG Oxygen Saturation 95.5 % (95-100); ABG PCO2 52.1 MM HG (35-48); ABG PH 7.362 (7.35-7.45); ABG PO2 85.7 MM HG (80-95); ABG TCO2 27.1 MMOL/L (23-27); Allen Test Positive
[2017-01-31] MEDS ORDERED: LORazepam 2 MG/1 ML VIAL IV PRN (04:43)
[2017-01-31 04:50] LABS: Basophils % 0.1 % (0.0-0.8); Hematocrit 32.2 VOL% (42.0-52.0); Hemoglobin 9.8 GM/DL (14.0-18.0); Immature Granulocytes % 1.1 %; Immature Granulocytes Absolute 0.16 #; Lymphocytes # 1.3 10*3/uL (1.4-4.0); Lymphocytes % 8.6 % (21.2-54.2); Mean Corpuscular HGB Conc 30.4 GM/DL (32-36); Mean Corpuscular Hemoglobin 32 PG (27-34); Mean Corpuscular Volume 104.2 FL (87-102); Mean Platelet Volume 10.5 FL (9.6-12.0); Monocytes # 0.5 10*3/uL (0.11-0.8); Monocytes % 3.6 % (1.7-12.7); NRBC # 0.09 10*3/uL; Neutrophils # 12.7 10*3/uL (1.4-7.4); Neutrophils % 86.6 % (38.7-73.9); Platelet Count 274 T/CUMM (130-400); Red Blood Count 3.09 MC/CUMM (3.8-5.5); Red Cell Distribution Width 18.1 % (9.3-17.3); White Blood Count 14.7 T/CUMM (4-12)
[2017-01-31 05:30] LABS: Calcium 7.6 MG/DL (8.5-10.1); Osmolality,Calculated 309.8 MOS/KG (273-304); Potassium 5.1 MMOL/L (3.5-5.1)
[2017-01-31] MEDS: PIPERACILLIN/TAZOBACTAM 3,375 MG in SODIUM CHLORIDE 0.9% 100 ML IV SCH ×3 (06:15→22:25)
--- NOTE | 2017-01-31 07:51 | XRay Report ---
Referring Physician: Tommie Arriaga MD Exam: XR chest 1V portable Date: January 31, 2017 at 3:19 AM Reason: Recent ventilation Comparison: Chest one view portable January 30, 2017 Findings: The previously seen endotracheal tube is no longer identified. A feeding tube is again seen extending into the stomach and beyond the [id number]. The cardiac silhouette is again enlarged. There are scattered opacities within both lungs, most prominent at the right lung base. This likely represents atelectasis, pulmonary edema and possibly pneumonia. No pneumothorax is identified, but there is mild bilateral pleural fluid, right greater than left. The osseous structures appear stable. Impression: The previously seen endotracheal tube is not identified. The study is otherwise similar to before. PROCEDURE INTERPRETED AT [facility] DEPARTMENT OF RADIOLOGY Final Report Signed by: Dr. Enedina Ferris
--- NOTE | 2017-01-31 08:30 | Pulmonology Progress Note ---
Pulmonary - PN: Subj Interval history: Patient is a 76-year-old black man that developed acute respiratory distress and diffuse infiltrates and had to be intubated yesterday. He did have significant hypoxemia with extensive infiltrates. He has diuresed fairly well and looks comfortable today. His oxygenation has improved and his vital signs are stable. His chest x-ray still shows mild bibasilar infiltrates but is much better. He did do some CPAP yesterday sometime this morning he self extubated. He is a little confused and is coughing a good bit. His oxygenation is adequate and he is breathing okay. Will continue treatment for now Exam (Progress Note) - Constitutional Vitals: Period Temp Pulse Resp BP Sys/Prakash Pulse Ox Last 24 Hr 96.1 F-97.5 F 59-91 12-25 93-170/38-76 92-100 Exam: General appearance: no distress, over weight, other (He is breathing fairly well off the ventilator now) - Head Head exam: Present: normal inspection, normocephalic - Eye Eye exam: Present: EOMI. Absent: scleral icterus Pupils: Present: ALFREDA - ENT ENT exam: Present: Unremarkable, he still has an NG tube in place - Neck Neck exam: Absent: lymphadenopathy, thyromegaly - Respiratory Respiratory exam: Present: He has coarse breath sounds and bilateral rhonchi. - Cardiovascular Cardiovascular exam: Present: regular rate and rhythm. Absent: gallop, systolic murmur - GI/Abdominal GI/Abdominal exam: Present: distended, hypoactive bowel sounds, soft. Absent: organomegaly, tenderness - Extremities Exam Extremities exam: Absent: calf tenderness, edema - Neurological Exam Neurological exam: Present: He gets a little confused but is moving around okay. - Psychiatric Psychiatric exam: Present: Comfortable - Skin Skin exam: Present: warm, dry Results - Labs CBC & BMP: 01/31/17 04:31 01/31/17 04:31 Labs: His PO2 is 85 with a PCO2 of 52 and a pH of 7.36 this morning - Diagnostic Findings Procedure: Chest x-ray: image reviewed by me, report reviewed by me (Chest x- ray shows mild bibasilar infiltrates.) Assessment and Plan (1) Acute respiratory failure with hypoxia Status: Acute Assessment and plan: The patient has been improving and doing CPAP fairly well yesterday. He self extubated himself but seems to be breathing okay at present. Current Visit: Yes (2) Rheumatoid arthritis Status: Acute Assessment and plan: Patient apparently has a history of rheumatoid arthritis and may have interstitial lung disease. Current Visit: Yes (3) Pneumonia Status: Acute Assessment and plan: He still has bibasilar infiltrates and is being treated for pneumonia. His cultures are negative so far. Chest x-ray has improved. Current Visit: Yes (4) Acute renal failure Status: Acute Assessment and plan: His creatinine is 1.6 today. Current Visit: Yes (5) Interstitial lung disease Status: Acute Assessment and plan: His x-rays suggest he may have some interstitial lung disease. Chest x-ray is better but he does have some mild bibasilar changes. He is breathing reasonably well at present. We will continue present therapy Current Visit: Yes
[2017-01-31] MEDS: ASPIRIN CHEW 81 MG TABLET PO SCH (09:12)
[2017-01-31] MEDS: sulfaSALAzine 500 MG TABLET PO SCH ×2 (09:12→20:42)
[2017-01-31] MEDS: FERROUS SULFATE 325 MG TABLET PO SCH (09:13)
[2017-01-31] MEDS: LORATADINE 10 MG TABLET PO SCH (09:13)
[2017-01-31] MEDS: FOLIC ACID 1 MG TABLET PO SCH (09:13)
[2017-01-31] MEDS: ATORVASTATIN 40 MG TABLET PO SCH (09:14)
[2017-01-31] MEDS: GABAPENTIN 300 MG CAPSULE PO SCH ×3 (09:14→20:42)
[2017-01-31] MEDS: valACYclovir 500 MG TABLET PO SCH ×3 (09:15→20:42)
[2017-01-31] MEDS: ALLOPURINOL 100 MG TABLET PO SCH (09:16)
[2017-01-31] MEDS: methylPREDNISolone SOD SUC 40 MG/1 ML VIAL IV SCH ×2 (09:19→18:56)
[2017-01-31] MEDS: ENOXAPARIN 40 MG/0.4 ML SYRINGE SUBCUT SCH (09:29)
[2017-01-31] MEDS: PANTOPRAZOLE 40 MG VIAL IV SCH (09:31)
--- NOTE | 2017-01-31 10:45 | Hospitalist Progress Note ---
Assessment and Plan (1) Pneumonia Status: Acute Assessment and plan: 1)acute respiratory failure- extubated himself this morning and ok so far. Continue current treatment and monitor in ICU today. 2)pneumonia- continue antibiotics, guaifenesin, steroids. 3)interstitial lung disease- probably due to RA. on sulfasalazine 4)renal failure- creatinine stable at 1.6 5)hyperglyacemia- on steroids. Current Visit: Yes (2) Fever Status: Resolved Current Visit: Yes (3) Altered mental status Status: Acute Current Visit: Yes (4) Hypoxia Status: Acute Current Visit: Yes (5) Anemia Status: Acute Current Visit: Yes (6) Acute renal failure Status: Acute Current Visit: Yes (7) Interstitial lung disease Status: Acute Current Visit: Yes (8) Constipation Status: Acute Current Visit: Yes (9) Hyperglycemia Status: Acute Current Visit: Yes (10) Acute respiratory failure with hypoxia Status: Acute Current Visit: Yes (11) Rheumatoid arthritis Status: Chronic Current Visit: Yes (12) Septic shock Status: Resolved Current Visit: Yes Hospitalist: Subjective Interval history: Mr Villar self extubated in the barn hand hours. He is stable, breathing ok. He has his NGT in and complains that it bothers him. WIll get swallow eval later this afternoon once the sedation has worn off and see if it is safe to feed him and give him meds. Exam - Constitutional Vitals: Period Temp Pulse Resp BP Sys/Prakash Pulse Ox Last 24 Hr 96.1 F-97.5 F 59-91 12-25 93-170/38-76 92-100 General appearance: no acute distress, over weight - Head Head exam: Present: normocephalic, atraumatic - Eye Eye exam: Present: EOMI. Absent: scleral icterus - ENT ENT exam: Present: normal external ear exam - Neck Neck exam: Present: normal inspection - Respiratory Respiratory exam: Present: rales (at bases) - Cardiovascular Cardiovascular exam: Present: regular rate and rhythm - GI/Abdominal GI/Abdominal exam: Present: normal bowel sounds, soft - Extremities Exam Extremities exam: Absent: edema - Neurological Exam Neurological exam: Present: alert, other (complained of NGT) - Skin Skin exam: Present: warm, dry Results - Labs CBC & BMP: 01/31/17 04:31 01/31/17 04:31 Lab Results: I have reviewed the past 24 hour labs
[2017-01-31] MEDS: PROPOFOL 1,000 MG/100 ML BOTTLE IV SCH (19:31)
[2017-01-31] MEDS: ZIPRASIDONE 20 MG/1 ML VIAL IM PRN (20:42)
[2017-02-01] MEDS: INSULIN LISPRO 100 UNIT/ML SUBCUT SCH ×3 (00:29→13:24)
[2017-02-01] MEDS: methylPREDNISolone SOD SUC 40 MG/1 ML VIAL IV SCH ×3 (00:29→17:38)
[2017-02-01] MEDS: ALBUTEROL/IPRATROPIUM 3 ML NEB RESP TX SCH ×3 (01:14→12:00)
[2017-02-01 04:37] LABS: ABG Base Excess 2.4 MMOL/L (-2.5-2.5); ABG HCO3 26.5 MMOL/L (20-26); ABG Oxygen Saturation 98.2 % (95-100); ABG TCO2 29.2 MMOL/L (23-27)
[2017-02-01 06:29] LABS: ABG Base Excess 3.5 MMOL/L (-2.5-2.5); ABG HCO3 27.4 MMOL/L (20-26); ABG Oxygen Saturation 92.3 % (95-100); ABG PCO2 60.5 MM HG (35-48); ABG PH 7.317 (7.35-7.45); ABG PO2 68.9 MM HG (80-95); ABG TCO2 28.5 MMOL/L (23-27); Allen Test Positive; Pt O2 Delivery Device CPAP
[2017-02-01] MEDS: PIPERACILLIN/TAZOBACTAM 3,375 MG in SODIUM CHLORIDE 0.9% 100 ML IV SCH ×2 (06:37→17:39)
[2017-02-01] MEDS: FOLIC ACID 1 MG TABLET PO SCH (08:37)
[2017-02-01] MEDS: FERROUS SULFATE 325 MG TABLET PO SCH (08:38)
[2017-02-01] MEDS: ALLOPURINOL 100 MG TABLET PO SCH (08:38)
[2017-02-01] MEDS: ASPIRIN CHEW 81 MG TABLET PO SCH (08:38)
[2017-02-01] MEDS: ATORVASTATIN 40 MG TABLET PO SCH (08:38)
[2017-02-01] MEDS: GABAPENTIN 300 MG CAPSULE PO SCH ×2 (08:38→17:39)
[2017-02-01] MEDS: valACYclovir 500 MG TABLET PO SCH ×2 (08:38→17:39)
[2017-02-01] MEDS: LORATADINE 10 MG TABLET PO SCH (08:38)
[2017-02-01] MEDS: ENOXAPARIN 40 MG/0.4 ML SYRINGE SUBCUT SCH (08:38)
[2017-02-01] MEDS: sulfaSALAzine 500 MG TABLET PO SCH (08:38)
--- NOTE | 2017-02-01 08:39 | Pulmonology Progress Note ---
Pulmonary - PN: Subj Interval history: Patient is a 76-year-old black man that developed acute respiratory distress and diffuse infiltrates and had to be intubated yesterday. He did have significant hypoxemia with extensive infiltrates. He has diuresed fairly well and looks comfortable today. His oxygenation has improved and his vital signs are stable. His chest x-ray still shows mild bibasilar infiltrates but is much better. He did do some CPAP yesterday sometime this morning he self extubated. He did fairly well yesterday with his breathing although he had some confusion. During the night he was placed on BiPAP. He looks fairly comfortable on BiPAP. His oxygenation has been adequate. He has a harsh cough but is not struggling too badly. Exam (Progress Note) - Constitutional Vitals: Period Temp Pulse Resp BP Sys/Prakash Pulse Ox Last 24 Hr 97.5 F-97.9 F 69-100 12-99 101-176/50-84 92-100 Exam: General appearance: no distress, over weight, other (He is resting fairly well in bed. He has a BiPAP mask in place.) - Head Head exam: Present: normal inspection, normocephalic - Eye Eye exam: Present: EOMI. Absent: scleral icterus Pupils: Present: ALFREDA - ENT ENT exam: Present: He has a BiPAP mask in place. - Neck Neck exam: Absent: lymphadenopathy, thyromegaly - Respiratory Respiratory exam: Present: He has coarse breath sounds and bilateral rhonchi. He is moving air okay. - Cardiovascular Cardiovascular exam: Present: regular rate and rhythm. Absent: gallop, systolic murmur - GI/Abdominal GI/Abdominal exam: Present: distended, hypoactive bowel sounds, soft. Absent: organomegaly, tenderness - Extremities Exam Extremities exam: Absent: calf tenderness, edema - Neurological Exam Neurological exam: Present: He gets a little confused but is moving around okay. - Psychiatric Psychiatric exam: Present: Comfortable - Skin Skin exam: Present: warm, dry Results - Labs CBC & BMP: 01/31/17 04:31 01/31/17 04:31 Labs: His PO2 is 68 with a PCO2 of 60 and a pH of 7.31 Assessment and Plan (1) Acute respiratory failure with hypoxia Status: Acute Assessment and plan: The patient extubated himself yesterday and did okay. He did require BiPAP last night. He looks reasonably comfortable this morning. He does have some CO2 retention. Current Visit: Yes (2) Rheumatoid arthritis Status: Chronic Assessment and plan: Patient apparently has a history of rheumatoid arthritis and may have interstitial lung disease. Current Visit: Yes (3) Pneumonia Status: Acute Assessment and plan: He still has bibasilar infiltrates and is being treated for pneumonia. His cultures are negative so far. Chest x-ray has improved. He still has some respiratory problems. Will continue present therapy. Current Visit: Yes Qualifiers: Laterality: bilateral Lung location: lower lobe of lung (4) Acute renal failure Status: Acute Assessment and plan: His creatinine is 1.6 today. Current Visit: Yes (5) Interstitial lung disease Status: Acute Assessment and plan: His x-rays suggest he may have some interstitial lung disease. Chest x-ray is better but he does have some mild bibasilar changes. He still has some CO2 retention. Will continue vigorous respiratory therapy. Current Visit: Yes
[2017-02-01] MEDS: PANTOPRAZOLE 40 MG VIAL IV SCH (08:56)
--- NOTE | 2017-02-01 09:20 | Physician Query Form ---
CLICK EDIT DOCUMENT TO SELECT QUERY ANSWER --> OK --> SIGN Sonya Mustafa RN Clinical Psychological Operations W) [phone] (f) [phone] [email or web address]: Make your selection(s) from the choices in EACH section by typing an "x" and enter comments in the comment section. Please use your independent medical judgment in providing your response. This request does not imply that any particular answer is desired or expected. CLINICAL INDICATORS: (Providers should not edit this section) Based on documentation of "Acute septic shock" "Hold Lasix. start low dose Neosynephrine. Intensify antibiotics" "Acute renal failure" "Acute respiratory failure" On admit: Temp 101.8, HR 120, BP 119/63. On 01/29: Temp 96.1, HR 41, BP 77/36. Treated with IV Ed, IV Rocephin, IV Zithromax, IV Fluids. Please select the organ dysfunction below related to sepsis. Based on the above, could you clarify the appropriate diagnosis, if significant , that supports the above abnormalities and additional evaluation, monitoring, and/or treatment rendered: ( x) Acute respiratory failure ( ) Acute renal failure ( ) Hypotension ( ) Other, please specify: ( ) Clinically unable to determine COMMENTS: Use of terms such as suspected, likely, or probable (associated with a specific diagnosis that is being evaluated, monitored, or treated as if it exists) are acceptable and can be restated in the discharge summary if not ruled out. MTDD
--- NOTE | 2017-02-01 09:28 | Physician Query Form ---
CLICK EDIT DOCUMENT TO SELECT QUERY ANSWER --> OK --> SIGN PROVIDERS: Make your selection(s) from the choices in EACH section by typing an "x" and enter comments in the comment section. Please use your independent medical judgment in providing your response. This request does not imply that any particular answer is desired or expected. CLINICAL INDICATORS: (Providers should not edit this section) Based on documentation of "Patient has had a stroke" "MRI report reviewed: 0.7cm in right occipital lobe consistent with an infarct acute or early subacute " MRI shows R ICA occlusion. 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 MTDD
[2017-02-01] MEDS: ZIPRASIDONE 20 MG/1 ML VIAL IM PRN (13:00)
--- NOTE | 2017-02-01 13:55 | Discharge Summary ---
Hospital Course - Hospital Course Hospital Course: Mr Villar presented with acute hypoxic resp failure due to pneumonia on suspected chronic interstitial lung disease. He decompensated and required intubation for several days but extubated himself yesterday and has done ok. He required BIPAP last night. He continues to require IV antibiotics. He has some confusion which was treated with Geodon. We are concerned about his swallow because aspiration led to his resp decompensation. He is receiving tube feeds until speech therapy can make their recommendations regarding safest way for him to eat. He had CHELI and his creatinine is stable now at 1.6 His glucoses have been elevated on steroids. He likely has interstitial lung disease related to his RA. He also needs PT/OT. He lives at a care home. HE will be transferred to LTAC today. I discussed this case with Dr Arriaga his pulmonary toy consultant. I spent 36 minutes in discharge time for exam, discharge planning, medicine reconciliation, documentation. Diagnosis - Discharge Diagnosis (1) Pneumonia Status: Acute (2) Altered mental status Status: Acute (3) Hypoxia Status: Acute (4) Anemia Status: Acute (5) Acute renal failure Status: Resolved (6) Interstitial lung disease Status: Acute (7) Constipation Status: Acute (8) Hyperglycemia Status: Acute (9) Acute respiratory failure with hypoxia Status: Acute (10) Rheumatoid arthritis Status: Chronic (11) Septic shock Status: Resolved Discharge Plan - Discharge Data Disposition: Disch/Xfer to [facility] Condition at Discharge: Guarded Discharge Diet: other (tube feeds pending speech eval of swallow) Activity: as per physical therapy - Discharge Medications New Albuterol Neb [Proventil Neb] 2.5 mg RESP TX RT Q1H PRN #0 PRN Reason: Shortness Of Breath/Wheezing Aspirin Chew Tab 81 mg PO DAILY tablet Bisacodyl Tab [Dulcolax Tab] 10 mg PO DAILY PRN #0 tablet PRN Reason: Constipation Dextrose 50% [D50] 25 gm IV PRN PRN #0 vial PRN Reason: Hypoglycemia with IV access Enoxaparin [Lovenox] 40 mg SUBCUT Q24H syringe Glucagon 1 mg IM PRN PRN #0 vial PRN Reason: Hypoglycemia w/o IV access Insulin Lispro [HumaLOG] See Protocol SUBCUT Q6HR unit Ondansetron Inj [Zofran Inj] 4 mg IV Q4H PRN #0 vial PRN Reason: Nausea Pantoprazole Inj [Protonix Inj] 40 mg IV DAILY vial Piperacillin/Tazobactam [Zosyn] 3,375 mg IV Q8H vial Ziprasidone Inj [Geodon Inj] 10 mg IM Q12H PRN #1 vial PRN Reason: Agitation guaiFENesin/DM LIQUID [Robitussin Dm] 10 ml PO Q4H PRN #0 PRN Reason: Cough valACYclovir [Valtrex] 1,000 mg PO TID tablet Acetaminophen Tab [Tylenol Tab] 650 mg PO Q4H PRN #0 tablet PRN Reason: fever, headache/body aches Albuterol/Ipratropium Neb [Duoneb] 3 ml RESP TX RT Q6H Ferrous Sulfate Tab [Feosol Original Tab] 325 mg PO DAILY tablet Magnesium Hydroxide Susp [Milk of Magnesia] 30 ml PO DAILY PRN #0 PRN Reason: Constipation methylPREDNISolone SOD SUC INJ [SoluMEDROL] 40 mg IV Q8H vial Continue Sulfasalazine [Azulfidine] 500 mg PO BID Loratadine [Claritin] 10 mg PO DAILY Benzocaine/Menthol Lozenge [Cepacol Lozenge] 1 lozenge PO PRN PRN PRN Reason: Sore Throat Allopurinol 100 mg PO BID Gabapentin 300 mg PO TID Ammonium Lactate 12% Lotion [Lac-Hydrin 12% Lotion] 1 applic TOP Q6HR PRN PRN Reason: Dry Skin Folic Acid Tab 2 mg PO DAILY Atorvastatin Calcium 40 mg PO DAILY Discontinued Promethazine Tab [Phenergan Tab] 25 mg PO Q4H PRN PRN Reason: Nausea Guaifenesin [Mucinex] 200 mg PO PRN PRN PRN Reason: Cough Aspirin [Ecotrin] 81 mg PO DAILY Albuterol Sulfate [Proair HFA] 90 mcg INH QID Calcium (Carbonate) [Oscal 500] 500 mg PO TID Albuterol Sulfate [Proair HFA] 2 puffs QID hydroCHLOROthiazide [Hydrochlorothiazide] 12.5 mg PO DAILY Cyanocobalamin (Vitamin B-12) [Vitamin B-12] 1,000 mcg PO DAILY Cilostazol 50 mg PO BID Dextromethorphan HBr/B-Asif [Cepacol Sorethroat-Cough Gerri] 1 tablet PO Q4HR PRN PRN Reason: Sore Throat Skin Healing Oint (Aquaphor) [Aquaphor] 1 applic TOP DAILY HYDROcodone/ACETAMIN 10-325 [[place] 10-325] 1 tablet PO Q6H PRN PRN Reason: R leg pain guaiFENesin/DM LIQUID [Robitussin Dm] 10 ml PO Q4HR PRN PRN Reason: cough - Follow Up or Referral - Forms/Instructions Exam - Constitutional Vitals: Period Temp Pulse Resp BP Sys/Prakash Pulse Ox Last 24 Hr 97.5 F-97.9 F 69-100 12-99 109-179/51-102 92-100 General appearance: no acute distress, over weight - Eye Eye exam: Present: EOMI. Absent: scleral icterus - Respiratory Respiratory exam: Present: rales, rhonchi - Cardiovascular Cardiovascular exam: Present: regular rate and rhythm - GI/Abdominal GI/Abdominal exam: Present: normal bowel sounds, soft. Absent: tenderness - Extremities Exam Extremities exam: Absent: edema - Neurological Exam Neurological exam: Present: alert, other (speech soft but intelligible, moves all 4 but weak throughout. ). Absent: oriented X3, motor sensory deficit Discharge Results Procedures and tests throughout hospitalization: Pending Orders 01/27/17 06:10 Occult Blood, Stool Stat 02/02/17 04:00 XR chest 1V portable IN AM Labs on day of discharge: Labs from last 24 hours 02/01/17 02/01/17 02/01/17 11:31 06:25 06:08 ABG pH 7.317 L ABG pCO2 60.5 H ABG pO2 68.9 L ABG HCO3 27.4 H ABG Total CO2 28.5 H ABG O2 Saturation 92.3 L ABG Base Excess 3.5 H FiO2 32.00 POC Glucose 104 185 H 02/01/17 01/31/17 01/31/17 04:25 23:25 17:34 ABG pH 7.250 L ABG pCO2 72.0 H* ABG pO2 128.0 H ABG HCO3 26.5 H ABG Total CO2 29.2 H ABG O2 Saturation 98.2 ABG Base Excess 2.4 FiO2 32.00 POC Glucose 163 H 144 H 01/31/17 11:58 ABG pH ABG pCO2 ABG pO2 ABG HCO3 ABG Total CO2 ABG O2 Saturation ABG Base Excess FiO2 POC Glucose 192 H DS: Provider Date of admission: 01/26/17 03:26 Primary care physician: . No PCP Attending physician on admission: Nyla Ferreira MD Consults: 01/26/17 04:43 Consult to Pharmacy [CONS] Routine Reason for Pharmacy Consult: Adjust Meds Renal Funct 01/28/17 07:53 Consult to Physician [CONS] Routine Comment: resp failure Consulting Provider: Tommie Arriaga 01/30/17 12:20 Consult to Case Mgmt/Social Srvs [CONS] Routine Reason for Case Mgmt/Social Srvs: LTAC Consult Comment: [facility] referral on Tuesday01/31/17 16:23 Consult to Speech Therapy [CONS] Routine Reason for Speech Therapy: Bedside Swallow Eval Discharging clinician: Saida Whitman MD
[2017-02-01 17:36] VITALS: BP 171/80
== END 2017-02-01 17:30 | DRG 208 ==
LOC: EDBD → EDUNIT# → N.ED 01:14 → N.EDINP 03:25 → SUATTDRO 03:26 → N.EDINP 04:11 → N.2E 04:34 → N.CC 01-28 07:57
PROVIDERS: ADMIT Internal Medicine; ATTEND Internal Medicine